=== PATIENT | female | born 1965 | race Caucasian/White ===

== ENCOUNTER → 2020-08-09 15:50 | Outpatient (CLI) | payer OTHER, SELFPAY ==
--- NOTE | ~2020-08-09 | MM_ITS ---
EXAMINATION: MM screening angelo BI w radha HISTORY: Screening mammogram TECHNIQUE: Craniocaudal and mediolateral oblique 3-D tomosynthesis images were obtained and synthetic 2-D images were generated. CAD analysis was submitted and interpreted. COMPARISON: 07/08/2019, 09/03/2008 bilateral digital screening mammogram examinations BREAST PARENCHYMAL COMPOSITION: There are scattered areas of fibroglandular density. FINDINGS: There is no evidence of suspicious mass, calcification, or architectural distortion to sugg est malignancy in either breast. There has been no suspicious interval change. IMPRESSION: 1. No mammographic evidence of malignancy. 2. Recommend routine screening mammography in one year. BI-RADS Category 1: Negative Reviewed, dictated and finalized at location A. R CUTTER
== END ==
PROVIDERS: PCP Physician Assistant; Visit Provider Physician Assistant
DX: Z12.31 Encounter for screening mammogram for malignant neoplasm of breast (principal)
CPT/HCPCS: 77063; 77067

== ENCOUNTER → 2021-05-06 02:28 | Outpatient (CLI) | payer OTHER, SELFPAY ==
[2021-05-06 16:37] LABS: SARS-CoV-2 RNA PCR Negative
== END ==
PROVIDERS: PCP Physician Assistant; Visit Provider Internal Medicine Gastroenterology
DX: Z01.812 Encounter for preprocedural laboratory examination (principal); Z20.822 Contact with and (suspected) exposure to COVID-19
CPT/HCPCS: C9803; U0003; U0005

== ENCOUNTER 2021-05-09 02:00 | Day surgery (SDC) | payer OTHER, SELFPAY ==
[2021-04-21 14:52] VITALS: BMI 31.9
--- NOTE | 2021-05-09 09:08 | WPDANESEPPF ---
Anes - Initial Pre Proc Eval Procedure: Operation Date: 05/09/21 13:00 Proposed Procedures p Screening Colonoscopy - Byron Parekh MD Date/Time: 05/09/21 09:08 Surgeon: Byron Parekh MD Pre Op Diagnosis: neoplasm screening Patient Data Age: 55 Gender: F Height: 1.63 m Weight: 84.5 kg Allergies Allergy/AdvReac Type Severity Reaction Status Date / Time aspirin Allergy Unknown Hives Verified 05/09/21 11:47 Home Medications Medication Instructions Recorded Confirmed Type atorvastatin 10 mg tablet 10 mg PO DAILY 03/11/20 04/21/21 History losartan 25 mg tablet 25 mg PO DAILY 03/11/20 04/21/21 History calcium carbonate 600 mg calcium 600 mg PO DAILY 03/17/21 04/21/21 History (1,500 mg) tablet Patient hx anesthesia problems: none Family hx anesthesia problems: none Results Review: All pre-operative results and documents have been reviewed as part of the pre-operative evaluation. [facility] Past Medical History Medical History (Updated 05/09/21 @ 09:09 by Patrice Lewis MD) Anemia Arthritis Asthma High cholesterol Hypertension Miscarriage Obesity Pneumonia Psoriasis Surgical History Surgical History History of appendectomy History of colposcopy S/P dilation and curettage Family History Family History Father Cerebrovascular accident Mother Family history of lymphoma, Onset Age: 82 Patient's mother is , Onset Age: 82 Other Hypertension Social History Social History Smoking status: Never smoker Alcohol intake: current Drinks per week: 8 Substance use: never Living arrangements: with family Spiritual care concerns: No Anes - Eval Final PreProcedure Day of Procedure 05/09/21 09:08 Patient weight: obese Heart: regular rate and rhythm Lungs: clear to auscultation and normal air movement Airway: Mallampati scale class II Neurological: alert and oriented Last oral intake: >/= 8 hours ASA classification: III Emergent: no Anesthetic plan: proceed Anesthesia type and monitoring: general GIVS Results Review: All pre-operative results and documents have been reviewed as part of the pre-operative evaluation. Informed Consent: The patient's anesthetic plan and its attendant risks and benefits were discussed with the patient/family/POA. Questions were solicited and answers provided to the satisfaction of the patient/family/POA.
[2021-05-09 11:48] VITALS: BP 138/70; PULSE 66; RESP 20; TEMP 36.1; O2SAT 98; BMI 31.8
[2021-05-09] MEDS: LACTATED RINGERS 1,000 ML 150 ML IV CONT (11:51)
--- NOTE | 2021-05-09 12:29 | WPDGICN ---
Assessment and Plan Assessment and plan (1) Encounter for screening colonoscopy: Code(s): Z12.11 - Encounter for screening for malignant neoplasm of colon Status: Acute Assessment and Plan: Patient presents for screening colonoscopy. Appears to be at average risk for colon polyps. GI Consult Note Consult date/time: 05/09/21 12:29 HPI: Wellington Eddy is a 55 year old female Presents for screening colonoscopy. Patient reports that her current weight appetite bowel movements are normal. She denies abdominal pain. She has had no bleeding. Family history noncontributory. She did have a previous screening colonoscopy 10 years ago that was unremarkable. Plan to proceed with neoplasia screening at this time. Review of Systems Review of Systems: All systems reviewed & are unremarkable except as noted in HPI and below PMFSH Past Medical History Medical History (Updated 05/09/21 @ 12:31 by Byron Parekh MD) Anemia Arthritis Asthma High cholesterol Hypertension Miscarriage Obesity Pneumonia Psoriasis Surgical History Surgical History History of appendectomy History of colposcopy S/P dilation and curettage Family History Family History Father Cerebrovascular accident Mother Family history of lymphoma, Onset Age: 82 Patient's mother is , Onset Age: 82 Other Hypertension Social History Social History Smoking status: Never smoker Alcohol intake: current Drinks per week: 8 Substance use: never Living arrangements: with family Spiritual care concerns: No Meds Home Medications and Allergies Home Medications Medication Instructions Recorded Confirmed Type atorvastatin 10 mg tablet 10 mg PO DAILY 03/11/20 04/21/21 History losartan 25 mg tablet 25 mg PO DAILY 03/11/20 04/21/21 History calcium carbonate 600 mg calcium 600 mg PO DAILY 03/17/21 04/21/21 History (1,500 mg) tablet Allergies Allergy/AdvReac Type Severity Reaction Status Date / Time aspirin Allergy Unknown Hives Verified 05/09/21 11:47 Vital Signs Vital Signs - 24 hr 05/09/21 11:48 Temperature 96.9 F L Pulse Rate 66 Respiratory Rate 20 Blood Pressure 138/70 Pulse Oximetry 98 Exam Narrative: Physical exam reveals patient be alert. Vital signs stable. HEENT exam is unremarkable. Patient is anicteric. Lungs are clear to auscultation and percussion. Heart is without murmur or extra sounds. Abdominal exam bowel sounds present soft nontender with no hepatosplenomegaly. Digital external rectal exam is normal.
[2021-05-09 12:45] VITALS: BP 133/77; PULSE 68; RESP 19; O2SAT 98
[2021-05-09 12:55] VITALS: BP 119/60; PULSE 71; RESP 22; O2SAT 98
[2021-05-09 13:05] VITALS: BP 132/68; PULSE 63; RESP 17; O2SAT 98
== END 2021-05-09 13:11 | disposition home or self-care (01) ==
PROVIDERS: PCP Physician Assistant; Visit Provider Internal Medicine Gastroenterology
PROC: 0DJD8ZZ Inspection of Lower Intestinal Tract, Via Natural or Artificial Opening Endoscopic (ICD-10-PCS; CPT 45378; principal; 2021-05-09 13:00)
DX: Z12.11 Encounter for screening for malignant neoplasm of colon (principal); K64.8 Other hemorrhoids; I10 Essential (primary) hypertension; E78.00 Pure hypercholesterolemia, unspecified; E66.9 Obesity, unspecified; Z68.31 Body mass index [BMI] 31.0-31.9, adult
CPT/HCPCS: 45378; C9803; J2704; J7120; U0003; U0005

== ENCOUNTER → 2022-07-19 12:39 | Outpatient (CLI) | payer OTHER, SELFPAY ==
--- NOTE | ~2022-07-19 | MM_ITS ---
EXAMINATION: MM screening angelo BI w radha HISTORY: Screening TECHNIQUE: Craniocaudal and mediolateral oblique 3-D tomosynthesis images were obtained and synthetic 2-D images were generated. CAD analysis was submitted and interpreted. COMPARISON: Comparison to multiple prior studies sequentially, with oldest reviewed study dated 07/08. BREAST PARENCHYMAL COMPOSITION: There are scattered areas of fibroglandular density. FINDINGS: There is no evidence of suspicious mass, calcification, or architectural distortion to sugg est malignancy in either breast. There has been no suspicious interval change. IMPRESSION: 1. No mammographic evidence of malignancy. 2. Recommend routine screening mammography in one year. BI-RADS Category 1: Negative Reviewed, dictated and finalized at location A. UETTING MACHINE OPERATOR
== END ==
PROVIDERS: PCP Physician Assistant; Visit Provider Physician Assistant
DX: Z12.31 Encounter for screening mammogram for malignant neoplasm of breast (principal)
CPT/HCPCS: 77063; 77067

== ENCOUNTER 2025-02-17 07:19 | Outpatient (CLI) | payer OTHER, SELFPAY ==
--- NOTE | ~2025-02-17 | MM_ITS ---
EXAMINATION: MM screening [facility] BI w radha HISTORY: Screening TECHNIQUE: Craniocaudal and mediolateral oblique 3-D tomosynthesis images were obtained and synthetic 2-D images were generated. CAD analysis was submitted and interpreted. COMPARISON: Mammograms from 07/19/2022 and 08/09/2020 BREAST PARENCHYMAL COMPOSITION: Not Dense: The breasts are almost entirely fatty. FINDINGS: There is no evidence of suspicious mass, calcification, or architectural distortion to suggest malignancy in either breast. [There has been no significant interval change. IMPRESSION: 1. No mammographic evidence of malignancy. Recommend routine screening mammography in one year. BI-RADS Category 1: Negative Reviewed, dictated, and finalized at Location A. Reviewed, dictated and finalized at location Q. IMPRESSION: 1. No mammographic evidence of malignancy. Recommend routine screening mammogra phy in one year. BI-RADS Category 1: Negative
--- OUTSIDE RECORDS SUMMARY | 2025-02-17 07:29 | XMS_ITS | Clinical Summary ---
Author Organization [facility] Address [address] [place] [address] Care Team Providers Care Torpedo Man Name Role Phone Unavailable Primary Care Provider Unavailabl e Source Comments [facility],non-owned Affiliates and Associated Physician Practices is amultiple site organization consisting of ambulatory clinics and hospital sitesin [place], [place], [place] and [place]. This disclosure is being madepursuant to the Care Everywhere program and may not contain all information available regarding this patient. Last updated 18.[facility] Allergies Active Allergy Reactions Criticality Noted Date Comments Aspirin Anaphylaxis High 08/29/2017 Medications * Be aware that medications may not be up to date on this document. Alwaysverify current medications with the patient. LOSARTAN POTASSIUM-HCTZ PO Active atorvastatin (LIPITOR) 20 MG tablet Take 20 mg by mouth at bedtime Active fluticasone propionate (FLONASE) 50 MCG/ACT nasal spray [place] 2 sprays into each nostril once daily 1 bottles 08/29/2017 Active Family History Medical History Relation Name Comments CVA Father at age 82 Hyperlipidemia Father Hypertension Father Hyperlipidemia Mother Hypertension Mother Lymphoma Mother originated in [facility] Relation Name Status Comments Father Mother Social History Tobacco Use Types Packs/Day Years Used Date Smoking Tobacco: Never Smokeless Tobacco: Never Comments No Sex and Gender Information Value Date Recorded Sex Assigned at Not on file Legal Sex Female 9:16 AM CDT Gender Identity Not on file Sexual Orientation Not on file Last Filed Vital Signs Vital Sign Reading Time Taken Comments Blood Pressure 126/64 08/29/2017 12:06 PM CDT Pulse 75 08/29/2017 12:06 PM CDT Temperature 37.1 C (98.7 F) 08/29/2017 12:06 PM CDT Respiratory Rate 16 08/29/2017 12:06 PM CDT Oxygen Saturation 97% 08/29/2017 12:06 PM CDT Inhaled Oxygen Concentration - - Weight 83.5 kg (184 lb) 08/29/2017 12:06 PM CDT Height 165.1 cm (5' 5) 08/29/2017 12:06 PM CDT Body Mass Index 30.62 08/29/2017 12:06 PM CDT Plan of Treatment Health Maintenance Due Date Last Done Comments COLOGUARD (AGES 45-75) - COL ON CA SCREENING 1966 COLON MONITORING 1966 COLONOSCOPY - COLON CA SCREENING 1966 CT COLONOGRAPHY - COLON CA SCREENING 1966 Colorectal Cancer Screening 1966 FIT - COLON CA SCREENING 1966 FLEX SIG - COLON CA SCREENING 1966 MAMMOGRAM 1966 HIV SCREENING 1981 HEPATITIS C SCREENING 08/07/1984 DTAP/TDAP/TD VACCINES (1 - Tdap) 1985 HEPATITIS B VACCINE (1 of 3 - 19+ 3-dose series) 1985 PAP SMEAR 1987 PNEUMOCOCCAL VACCINE 50+ (1 of 1 - PCV) 2016 ZOSTER VACCINE (1 of 2) 2016 SCREENING FOR DIABETES 08/29/2017 COVID-19 VACCINE (1 - 2023-2 5 season) 2024 DEPRESSION SCREENING 06/18/2024 INFLUENZA VACCINE (#1) 2025 HIB VACCINE Aged Out No longer eligi ble based on patient's age to complete this topic HPV VACCINE Aged Out No longer eligi ble based on patient's age to complete this topic MENINGOCOCCAL (Group B) VACC INE SHARED DECISION-MAKING Aged Out No longer eligibl e based on patient's age to complete this topic MENINGOCOCCAL GROUPS A/C/Y/W VACCINE Aged Out No longer eligible b ased on patient's age to complete this topic Insurance [employer]IC Member Subscriber Plan / Payer (Ef fective for All Dates) Name:Wellington Eddy Relation to Subscriber:Self Name:Wellington Eddy Payer ID:Not on file Group ID:Not on file Type:Commercial [id number] [place] [address]
--- OUTSIDE RECORDS SUMMARY | 2025-02-17 07:29 | XMS_ITS | Encounter Summary ---
Author Organization [facility] Address [address] [place] [address] Care Team Providers Care Process Project Engineer Name Role Phone Fortino Lunsford MD Primary Care Provider + Encounter Details Date Type Department Care Team (Latest Contact Info) Description 08/06/2007 [facility] Other Screening Mammogram Social History Tobacco Use Types Packs/Day Years Used Date Smoking Tobacco: Never Assessed Comments Unknown Sex and Gender Information Value Date Recorded Sex Assigned at Not on file Legal Sex Female 5:31 AM SECURITY AND PRIVACY CONSULTANT Gender Identity Not on file Sexual Orientation Not on file documented as of this encounter Plan of Treatment Not on file documented as of this encounter Visit Diagnoses Diagnosis Other screening mammogram documented in this encounter Care Teams Process Project Engineer Relationship Specialty Start Date End Date Fortino Lunsford MD PCP - General Internal Medicine 08/05/14 documented as of this encounter
--- OUTSIDE RECORDS SUMMARY | 2025-02-17 07:29 | XMS_ITS | Encounter Summary ---
Author Organization [facility] Address [facility] [place] [place] [address] Care Team Providers Care Personal Security Specialist Name Role Phone Unavailable Primary Care Provider Unavailabl e Encounter Details Date Type Department Care Team (Late st Contact Info) Description 08/10/2023 Lab Requisition [facility] - DermPath Lab [address] [place] [phone] Jennifer Mensah MD [address] [facility] [address] [place] [address] Social History Tobacco Use Types Packs/Day Years Used Date Smoking Tobacco: Never Smokeless Tobacco: Never Comments No Sex and Gender Information Value Date Recorded Sex Assigned at Not on file Legal Sex Female 9:16 AM CDT Gender Identity Not on file Sexual Orientation Not on file documented as of this encounter Plan of Treatment Not on file documented as of this encounter Procedures Procedure Name Priority Date/Time Associated Diagnosis Comments DERMATOPATHOLOGY Routine 08/10/2023 9:37 AM INDUSTRIAL ACCOUNTANT documented in this encounter Results * DERMATOPATHOLOGY (08/10/2023 9:37 AM INDUSTRIAL ACCOUNTANT) Case Report Dermatopathology Report Case: [id number] Authorizing Provider: Jennifer Mensah MD Collected: 08/10/2023 09:37 AM Ordering Location: [facility] Lab Received: 08/13/2023 12:22 PM Pathologist: Ugo Pugh MD Specimen: Skin, left medial lower leg 11:36 AM INDUSTRIAL ACCOUNTANT DERMATOPATHOLOGY LABORATORY Final Diagnosis Specimen A. SKIN, left medial lower leg: NO TISSUE RECEIVED IN VIAL 11:36 AM [facility] at 1136 INDUSTRIAL ACCOUNTANT Clinical History ISK vs SCC, irritated 11:36 AM [facility] Gross Description Specimen A: Received is one formalin filled container labeled with the patient's name, no specimen in the vial. 11:36 AM [facility] Microscopic Description Specimen A. SKIN, left medial lower leg: Received was one formalin filled container. The vial had no tissue for processing. COMMENT: This finding was discussed with the clinician's office. 11:36 AM [facility] Disclaimer An external and internal positive and negative controls are appropriate for the histochemical, immunohistochemical and immunofluorescence stain(s) in this case (if any), except where stated explicitly. The performance characteristics of the stain(s) cited in this report were developed and its performance characteristic determined by the Dermatopathology Laboratory at [facility], directed by Dr. Dinesh Pugh. These tests need not be, and therefore are not, approved by the [place] Food and Drug Administration. The tests are used for clinical purposes. Billing Codes Specimen Charges Stain Charges 11:36 AM [facility] Embedded Images 11:36 AM [facility] Pathology/Cytolo gy TISSUE SPECIMEN FROM SKIN / Unknown 08/10/2023 9:37 AM INDUSTRIAL ACCOUNTANT 08/13/2023 12:22 PM [facility] Jennifer Mensah MD LAB - PATHOLOGY/CYTOLOGY OR DERABLES Final Result DERMATOPATHOLOGY LABORATORY [facility] - Department of Dermatology [address], [address] [phone] documented in this encounter Visit Diagnoses Not on filedocumented in this encounter
--- OUTSIDE RECORDS SUMMARY | 2025-02-17 07:29 | XMS_ITS | Clinical Summary ---
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 Gender Identity Not on file Sexual Orientation Not on file Occupation Industry Job Start Date Job End Date Not on file Not on file Not on file Not on file Plan of Treatment Health Maintenance Due Date Last Done Comments DTAP/TDAP/TD VACCINES (1 - Tdap) 1985 HEPATITIS B VACCINES (1 of 3 - 19+ 3-dose series) 1985 HPV/Cotest (21-29) 1987 CERVICAL CANCER SCREENING 1996 HPV/Cotest (30-65) 1996 PAP SMEAR 1996 COLORECTAL SCREENING 2011 Colorectal Cancer Screening 2011 FIT-DNA Q 3 years 2011 FIT/FOBT Q 1 year 2011 Flex Sig/CT Colonography Q 5 years 2011 ZOSTER VACCINE (1 of 2) 2016 BREAST CANCER SCREENING 03/10/2017 03/10/20 16, 08/05/2014, 06/06/2012, Additional history exists INFLUENZA VACCINE (#1) 2025 Procedures Procedure Name Priority Date/Time Associated Diagnosis Comments MAMMO SCREEN BILAT W OR WO CAD Routine 03/10/2016 4:42 PM CDT Visit for screening mammogram from Last 3 Months or Most Recently Relevant to Health Maintenance Results * MAMMO DIGITAL SCREEN BILAT (03/10/2016 4:42 PM CDT) Anatomical Region Laterality Modality Breast Bilateral Mammography Narrative 03/13/2016 9:02 AM CDT Bilateral digital screening mammogram with computer assisted diagnosis History: Annual screening exam. Findings: A bilateral screening mammogram was performed. Comparison is made to : 08/05/2014, 06/06/2012, 06/05/2011 There are scattered fibroglandular densities. No new masses, suspicious calcifications, or areas of asymmetry or distortion are identified. CAD was utilized. Impression: Negative screening mammogram. Recommendation: Routine annual follow-up Overall Assessment: Birads Category 1: Negative Fortino Lunsford MD MAMMO ORDERABLES Final R esult from Last 3 Months or Most Recently Relevant to Health Maintenance Insurance [facility] BLUE ACCESS/TRUE BLUE PPO Care Teams Expediter Relationship Specialty Start Date End Date Fortino Lunsford MD PCP - General Internal Medicine 08/05/14
--- OUTSIDE RECORDS SUMMARY | 2025-02-17 07:29 | XMS_ITS | Encounter Summary ---
Author Organization [facility] Address [address] [place] [address] Care Team Providers Care Head Teacher Name Role Phone Unavailable Primary Care Provider Unavailabl e Encounter Details Date Type Department Care Team (Late st Contact Info) Description 09/24/2023 Lab Requisition [facility] - DermPath Lab [address] [place] [phone] Shante Henry MD [address] [facility] [address] [place] [address] Social History Tobacco Use Types Packs/Day Years [...] Priority Date/Time Associated Diagnosis Comments DERMATOPATHOLOGY Routine 09/24/2023 3:33 AM CDT documented in this encounter Results * DERMATOPATHOLOGY (09/24/2023 3:33 AM CDT) Case Report Dermatopathology Report Case: [id number] Authorizing Provider: Shante Henry MD Collected: 09/24/2023 03:33 AM Ordering Location: [facility] - Received: 09/25/2023 07:30 AM DermPath Lab Pathologist: Divine Barraza MD Specimen: Skin, left leg 1:58 PM CDT DERMATOPATHOLOGY LABORATORY Final Diagnosis Specimen A. SKIN, left leg: DERMAL SCAR (L90.5) 1:58 PM CDT DERMATOPATHOLOGY LABORATORY at 1358 CDT Clinical History Prior Bx 08/10/23 not in jar now favor scar 1:58 PM CDT DERMATOPATHOLOGY LABORATORY Gross Description Specimen A: Received is one formalin filled container labeled with the patient's name and designated left leg. The specimen consists of a shave biopsy measuring 9x7x2 mm. Jar 0. 1:58 PM CDT DERMATOPATHOLOGY LABORATORY Microscopic Description Specimen A. SKIN, left leg: There are fibroblasts and collagen bundles oriented parallel to the skin surface with elongated blood vessels, some of which are oriented perpendicular to the skin surface. 1:58 PM CDT DERMATOPATHOLOGY LABORATORY Disclaimer An external and internal positive and negative controls are appropriate for the histochemical, immunohistochemical and immunofluorescence stain(s) in this case (if any), except where stated explicitly. The performance characteristics of the stain(s) cited in this report were developed and its performance characteristic determined by the Dermatopathology Laboratory at [facility], directed by Dr. Dinesh Pugh. These tests need not be, and therefore are not, approved by the [place] Food and Drug Administration. The tests are used for clinical purposes. Billing Codes Specimen Charges Stain Charges 98633 1 1:58 PM CDT DERMATOPATHOLOGY LABORATORY Embedded Images 1:58 PM CDT DERMATOPATHOLOGY LABORATORY Pathology/Cytolo gy TISSUE SPECIMEN FROM SKIN / Unknown 09/24/2023 3:33 AM CDT 09/25/2023 7:30 AM CDT us Shante Henry MD LAB - PATHOLOGY/CYTOLOGY ORD ERABLES Final Result DERMATOPATHOLOGY LABORATORY [facility] - Department of Dermatology [address] [place] [address], [facility] [phone] documented in this encounter Visit Diagnoses Not on filedocumented in this encounter
== END 2025-02-17 07:20 | disposition home or self-care (01) ==
LOC: CHSIMG 07:19
PROVIDERS: PCP Physician Assistant; Visit Provider Obstetrics & Gynecology
DX: Z12.31 Encounter for screening mammogram for malignant neoplasm of breast (principal)
CPT/HCPCS: 77063; 77067